=== PATIENT | female | born 2000 | race Two or more races ===

== ENCOUNTER 2018-01-18 00:18 | Emergency (ER) | payer SELFPAY ==
[~2018-01-18] VITALS: Ht 165.1 cm; Wt 65.8 kg
[2018-01-18] MEDS ORDERED: LORazepam Inj 2mg/ml 1ml IM ONE (00:45)
[2018-01-18 01:41] VITALS: BP 132/70
--- NOTE | 2018-01-18 02:15 | Emergency Room Report ---
History of Present Illness General Chief Complaint: Behavioral Complaint Source: Family Member, EMS Present Illness HPI Is a 17-year-old female who has no past medical history. She was brought in by EMS with altered mental status. According to EMS, family said that she would not move. She's been in bed all day and was putting her head on the table. When I asked her to get up she would not respond.. EMS, she has no movement in her extremities but able to open her eyes and follow them. Never happened to her before. She's been on a lot of stress with of her grandmother last year. Also loss of housing and have to live with her cousin. She also uses broke up with her boyfriend. No alcohol or drugs. Allergies: Coded Allergies: No Known Allergies (Unverified , 01/18/18) Patient History Past Medical History: see triage record, old chart reviewed Past Surgical History: none Pertinent Family History: none Social History: Denies: smoking Last Menstrual Period: unk Now: No Immunizations: other Reviewed Nursing Documentation: PMH: Agreed; PSxH: Agreed Nursing Documentation-PMH Past Medical History: No History, Except For History Of Psychiatric Problem: Yes - depression Review of Systems Eye: Denies: eye pain, blurred vision ENT: Denies: ear pain, nose congestion, throat swelling Respiratory: Denies: cough, shortness of breath Cardiovascular: Denies: chest pain, palpitations Gastrointestinal: Denies: abdominal pain, diarrhea, nausea, vomiting Musculoskeletal: Denies: back pain, joint pain Skin: Denies: rash Neurological: Denies: headache, numbness Endocrine: Denies: increased thirst, increased urine Hematologic/Lymphatic: Denies: easy bruising All Other Systems: negative except mentioned in HPI Physical Exam Vital Signs Date Time Temp Pulse Resp B/P (MAP) Pulse Ox O2 Delivery O2 Flow Rate FiO2 01/18/18 00:18 98.6 110 16 144/85 99 Room Air 98.6 vitals unremarkable Sp02 EP Interpretation: reviewed, normal General Appearance: well appearing, no apparent distress, alert Head: normocephalic, atraumatic Eyes: bilateral eye PERRL, bilateral eye EOMI ENT: hearing grossly normal, normal pharynx Neck: full range of motion, supple, no meningismus Respiratory: chest non-tender, lungs clear, normal breath sounds Cardiovascular #1: regular rate, rhythm, no murmur Gastrointestinal: normal bowel sounds, non tender, no mass, no organomegaly, no bruit, non-distended Musculoskeletal: back normal Neurologic: alert Psychiatric: depressed affect Skin: warm/dry Medical Decision Making Diagnostic Impression: Primary Impression: Stress and adjustment reaction Additional Impression: Conversion disorder with abnormal movement, acute episode, with psychological stressor ER Course Patient presents with acute stress reaction with conversion disorder. She would not move her extremities but able to follow me with her eyes. When asked to blink she would do it. I gave her a dose of Ativan and now she is able to talk more. Denies suicidal thoughts or homicidal thought. No criteria for 5150. We'll discharge home. There is no toxidrome for drug abuse. Last Vital Signs Date Time Temp Pulse Resp B/P (MAP) Pulse Ox O2 Delivery O2 Flow Rate FiO2 01/18/18 01:41 99.7 87 23 132/70 98 Room Air 99.7 Status: improved Disposition: HOME, SELF-CARE Condition: Stable Referrals: NOT CHOSEN IPA/,REFERRING (PCP) Additional Instructions: Follow-up with your doctor within a week for referral to see a psychologist/ psychiatrist. Return if symptom worsen. YULIANA HIGGINS M.D. Jan 18, 2018 02:15
[2018-01-18 02:40] VITALS: BP_SYST 122; BP_SYST 132; BP_DIAS 70; BP_DIAS 78
== END 2018-01-18 02:40 | disposition home or self-care (01) ==
LOC: EDBD 00:18 → EMR 00:53
DX: F43.9 Reaction to severe stress, unspecified (principal); F44.9 Dissociative and conversion disorder, unspecified; F32.9 Major depressive disorder, single episode, unspecified
CPT/HCPCS: 96372; 99282